=== PATIENT | female | born 1960 | race Caucasian/White ===

== ENCOUNTER 2018-01-27 13:55 | Outpatient (CLI) | payer MEDICARE, SELFPAY ==
[2018-01-27 14:39] LABS: HCT 34.8 % (36.0-46.0); Mean Corp. HGB Concentration 34.5 g/dL (32.0-36.0); Mean Corpuscular Hemoglobin 32.3 pg (27.0-33.0); Mean Corpuscular Volume 93.5 fL (80-95); Mean Platelet Volume 9.4 fL (8.0-11.0); Platelet Count 284 x1000/uL (130-400); RBC 3.72 m/cumm (4.00-5.20); RBC Distribution Width 12.9 % (11.7-14.6); White Blood Cell Count 4.33 k/cumm (4.4-10.8)
[2018-01-27 15:16] LABS: ALT 36 U/L (12-78)
== END 2018-01-27 14:15 ==
PROVIDERS: PCP Nurse Practitioner Family; Visit Provider Psychiatry & Neurology Clinical Neurophysiology
DX: G40.409 Other generalized epilepsy and epileptic syndromes, not intractable, without status epilepticus (principal)
CPT/HCPCS: 36415; 85027; 84460

== ENCOUNTER → 2018-11-26 10:30 | Outpatient (CLI) | payer MEDICARE, SELFPAY ==
--- NOTE | 2018-11-26 10:39 | DI.RAD_ITS ---
EXAM: XR FOOT LT COMPLETE INDICATION: hammer toe lt M20.42. COMPARISON: No exams were available for comparison TECHNIQUE: 2D digital imaging was performed. FINDINGS: There are hammertoe deformities of the 3rd, 4th and 5th toes. Associated degenerative bony changes a re evident. There is no evidence of a fracture or dislocation.
== END ==
PROVIDERS: PCP Nurse Practitioner Family; Visit Provider Podiatrist Foot & Ankle Surgery
DX: M20.42 Other hammer toe(s) (acquired), left foot (principal); M19.072 Primary osteoarthritis, left ankle and foot
CPT/HCPCS: 73630

== ENCOUNTER 2019-02-07 10:24 | Outpatient (CLI) | payer MEDICARE, SELFPAY ==
[2019-02-07 12:24] LABS: Absolute Basophil Count 0.06 k/cumm (0.0-0.2); Absolute Eosinophil Count 0.21 k/cumm (0.0-0.7); Absolute Lymphocyte Count 0.96 k/cumm (1.2-3.4); Absolute Monocyte Count 0.65 k/cumm (0.11-0.7); Absolute Neutrophil Count 2.96 k/cumm (1.2-6.7); Basophils % 1.2; Eosinophils % 4.3; HGB 12.6 g/dL (12.0-15.5); Lymphocytes % 19.8; Mean Corp. HGB Concentration 34.1 g/dL (32.0-36.0); Mean Corpuscular Hemoglobin 31.4 pg (27.0-33.0); Mean Corpuscular Volume 92.3 fL (80-95); Mean Platelet Volume 9.2 fL (8.0-11.0); Monocytes % 13.4; Neutrophils % 61.3; Platelet Count 306 x1000/uL (130-400); RBC 4.01 m/cumm (4.00-5.20); RBC Distribution Width 12.5 % (11.7-14.6); White Blood Cell Count 4.84 k/cumm (4.4-10.8)
== END 2019-02-07 10:44 ==
PROVIDERS: PCP Nurse Practitioner Family; Visit Provider Psychiatry & Neurology Clinical Neurophysiology
DX: G40.409 Other generalized epilepsy and epileptic syndromes, not intractable, without status epilepticus (principal); Z79.899 Other long term (current) drug therapy
CPT/HCPCS: 36415; 85025

== ENCOUNTER → 2019-11-16 12:22 | Outpatient (BNVA) | payer MEDICARE, SELFPAY | PROVIDERS: PCP Nurse Practitioner Family; Referring Provider Nurse Practitioner Family; Visit Provider Psychiatry & Neurology Neurology | DX: I67.1 Cerebral aneurysm, nonruptured (principal); G43.009 Migraine without aura, not intractable, without status migrainosus; G47.00 Insomnia, unspecified; J44.9 Chronic obstructive pulmonary disease, unspecified | CPT/HCPCS: 99205 ==

== ENCOUNTER → 2020-01-18 08:32 | Outpatient (BNVA) | payer MEDICARE, SELFPAY | PROVIDERS: PCP Nurse Practitioner Family; Referring Provider Nurse Practitioner Family; Visit Provider Psychiatry & Neurology Neurology | DX: I67.1 Cerebral aneurysm, nonruptured (principal); G43.009 Migraine without aura, not intractable, without status migrainosus; G47.00 Insomnia, unspecified | CPT/HCPCS: 99213; 99441 ==

== ENCOUNTER 2020-05-16 18:16 | Emergency (ER) | payer OTHER, SELFPAY ==
--- NOTE | 2020-05-16 18:15 | DI.RAD_ITS ---
EXAM: XR ELBOW LT LIMITED CLINICAL HISTORY: pain s/p fall. TECHNIQUE: 2D digital imaging was performed. COMPARISON: No exams were available for comparison FINDINGS: Limited two view study of the left elbow reveals no evidence of obvious fracture or joint effusion. There is no swelling of the olecranon bursa. Radial head appears unremarkable on these two views. IMPRESSION: DATA REPOSITORY: RADIATION DOSE DELIVERED:
--- NOTE | 2020-05-16 18:15 | DI.RAD_ITS ---
EXAM: XR SHOULDER LT COMPLETE 2+V CLINICAL HISTORY: pain s/p fall. TECHNIQUE: 2D digital imaging was performed. COMPARISON: No exams were available for comparison FINDINGS: There is a displaced and angulated fracture the humeral neck and there is inferior subluxation of the humeral head relative to the glenoid fossa. There is no obvious fracture of the glenoid fossa. AC joint appears unremarkable as does the clavicle. IMPRESSION: DATA REPOSITORY: RADIATION DOSE DELIVERED:
--- NOTE | 2020-05-16 18:15 | DI.RAD_ITS ---
EXAM: XR HUMERUS LT CLINICAL HISTORY: pain s/p fall. TECHNIQUE: 2D digital imaging was performed. COMPARISON: No exams were available for comparison FINDINGS: There is a displaced fracture of the surgical neck of the left humerus. There is also subluxation of humeral head inferiorly relative to the glenoid fossa. There are no fractures more distally in the humerus. IMPRESSION: There is a displaced fracture of the left humeral surgical neck with significant subluxation of the h umeral head. DATA REPOSITORY: RADIATION DOSE DELIVERED:
--- NOTE | 2020-05-16 18:15 | DI.RAD_ITS ---
EXAM: XR FOREARM LT CLINICAL HISTORY: pain s/p fall. TECHNIQUE: 2D digital imaging was performed. COMPARISON: CR,XR XR HUMERUS LT from 05/16/2020 FINDINGS: No evidence of fracture or dislocation of the forearm bones. No radiopaque foreign body. No osseous lesions. IMPRESSION: DATA REPOSITORY: RADIATION DOSE DELIVERED:
[2020-05-16 18:24] VITALS: BP 129/85; PULSE 67; RESP 16; TEMP 36.4; O2SAT 93
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
[2020-05-16] MEDS: Ibuprofen 600 MG TAB PO (18:44)
--- NOTE | 2020-05-16 19:37 | DI.VRAD_ITS ---
PROCEDURE INFORMATION: Exam: XR Left Humerus Exam date and time: 05/16/2020 6:31 PM Age: 60 years old Clinical indication: Other: Pain, S/P fall TECHNIQUE: Imaging protocol: XR Left humerus. Views: 2 or more views. COMPARISON: No relevant prior studies available. FINDINGS: Bones/joints: Displaced surgical neck fracture of the proximal left humerus. Inferior subluxation of the humeral head fragment, relative to the glenoid. Diffuse osteopenia. Soft tissues: Normal. IMPRESSION: Displaced left humeral surgical neck fracture with subluxation of the humeral head. Dictated and Authenticated by: Amadou Pruitt MD. Ordering:KYLEE Haro MD
--- NOTE | 2020-05-16 19:41 | DI.VRAD_ITS ---
PROCEDURE INFORMATION: Exam: XR Left Shoulder Exam date and time: 05/16/2020 6:31 PM Age: 60 years old Clinical indication: Other: Pain, S/P fall TECHNIQUE: Imaging protocol: XR Left shoulder. Views: 2 or more views. COMPARISON: No relevant prior studies available. FINDINGS: Bones/joints: Left humeral neck fracture with shortening and 15 mm lateral displacement. The humeral head fragment is inferiorly subluxed and rotated counterclockwise. Soft tissues: Normal. IMPRESSION: Angulated, displaced humeral neck fracture with inferior subluxation of the humeral head. Dictated and Authenticated by: Amadou Pruitt MD. Ordering:KYLEE Haro MD
--- NOTE | 2020-05-16 19:43 | DI.VRAD_ITS ---
PROCEDURE INFORMATION: Exam: XR Left Forearm Exam date and time: 05/16/2020 6:31 PM Age: 60 years old Clinical indication: Other: Pain, S/P fall TECHNIQUE: Imaging protocol: XR Left forearm. Views: 2 views. COMPARISON: CR XR ELBOW LT COMPLETE 05/16/2020 7:13 PM FINDINGS: Bones/joints: No fracture or dislocation. Soft tissues: Normal. IMPRESSION: No acute abnormality. Dictated and Authenticated by: Amadou Pruitt MD. Ordering:KYLEE Haro MD
--- NOTE | 2020-05-16 19:43 | DI.VRAD_ITS ---
PROCEDURE INFORMATION: Exam: XR Left Elbow Exam date and time: 05/16/2020 6:31 PM Age: 60 years old Clinical indication: Other: Pain, S/P fall TECHNIQUE: Imaging protocol: XR Left elbow. Views: 1 or 2 views. COMPARISON: CR XR HUMERUS LT 05/16/2020 7:04 PM FINDINGS: Bones/joints: Normal elbow joint spacing and alignment. No joint effusion. No fracture or dislocation. Soft tissues: Normal. IMPRESSION: No acute fracture the left elbow. Dictated and Authenticated by: Amadou Pruitt MD. Ordering:KYLEE Haro MD
--- NOTE | 2020-05-16 19:55 | SUR.PHASEI ---
Getting patient ready for discharge, IV D/C'd, Patient Called a friend for a ride, will be about a 1/2 hour coming from [place]. Patient states she had a camouflage coat and her wallet was in the pocket. Not in room with patient, call placed to [place] [facility] and they said they did not bring it, left it at the place they picked patient up. Patient informed.
--- NOTE | 2020-05-16 20:05 | NUR.NOTE ---
Nursing Note:Patient want to wear hospital gown home and wants sweat shirt over it. Only able to put right arm in sweat shirt and would only partially cover left shoulder. Went to lobby with patient to see if ride was here, suggested she sit over by the window so she could see when they arrive. Patient asked if she could sit in the other section so she did not have to sit on the radiator. I let her know there were chairs next to the radiator by the window.
--- NOTE | 2020-05-16 20:30 | NUR.NOTE ---
Nursing Note:Patient still sitting in the lobby. I asked her if I could call her ride again for her and she told me she just called her again and she was leaving now to pick her up.
== END 2020-05-16 20:19 | disposition home or self-care (01) ==
PROVIDERS: Emergency Provider Emergency Medicine; PCP Nurse Practitioner Family
DX: S43.032A Inferior subluxation of left humerus, initial encounter (principal); S42.212A Unspecified displaced fracture of surgical neck of left humerus, initial encounter for closed fracture; M25.522 Pain in left elbow; M79.632 Pain in left forearm; W07.XXXA Fall from chair, initial encounter; W54.1XXA Struck by dog, initial encounter
CPT/HCPCS: 23600; 99283; 73030; 73060; 73070; 73090; 99281

== ENCOUNTER 2020-05-22 08:28 | Outpatient (CLI) | payer OTHER, SELFPAY ==
--- NOTE | 2020-05-22 08:15 | DI.RAD_ITS ---
EXAM: XR SHOULDER LT COMPLETE 2+V CLINICAL HISTORY: f/u TECHNIQUE: COMPARISON: CR,XR XR SHOULDER LT COMPLETE 2+V from 05/16/2020 FINDINGS: Three views were obtained. Previously described fracture of the proximal humerus again noted, inferi or subluxation of the humeral head from the glenoid also again noted, no gross interval change in rachel earance comparison with prior radiographs of May 16. IMPRESSION: RADIATION DOSE DELIVERED: Total DLP
== END 2020-05-22 08:29 | disposition home or self-care (01) ==
LOC: DIORS 08:28
PROVIDERS: PCP Nurse Practitioner Family; Referring Provider Student in an Organized Health Care Education/Training Program; Visit Provider Student in an Organized Health Care Education/Training Program
DX: S42.212D Unspecified displaced fracture of surgical neck of left humerus, subsequent encounter for fracture with routine healing (principal); S43.03 Inferior subluxation and dislocation of humerus; S42.392A Other fracture of shaft of left humerus, initial encounter for closed fracture; S14.3XXA Injury of brachial plexus, initial encounter; W07.XXXA Fall from chair, initial encounter; W54.1XXA Struck by dog, initial encounter
CPT/HCPCS: 99204; 99214; 73030

== ENCOUNTER 2020-06-06 14:01 | Outpatient (CLI) | payer OTHER, SELFPAY ==
--- NOTE | 2020-06-06 13:45 | DI.RAD_ITS ---
EXAM: XR SHOULDER LT COMPLETE 2+V CLINICAL HISTORY: left shoulder pain. TECHNIQUE: 2D digital imaging was performed. COMPARISON: CR XR SHOULDER LT COMPLETE 2+V from 05/22/2020 FINDINGS: Again noted is the transverse fracture of the surgical neck of the proximal left humerus as well as s ignificant downward subluxation of the humeral head relative to the glenoid fossa. There there is fu rther displacement at the fracture site is seen on the Grashey view. There is now a distance of 8 mi llimeters between the outer cortex of the greater tuberosity and the subjacent cortex of the uppermos t tumorous, previously flush with each other. IMPRESSION: Further displacement at the fracture site. Persistent inferior subluxation at the glenohumeral joint also noted. DATA REPOSITORY: RADIATION DOSE DELIVERED:
== END 2020-06-06 14:02 | disposition home or self-care (01) ==
LOC: DIORS 14:01
PROVIDERS: PCP Nurse Practitioner Family; Referring Provider Nurse Practitioner Family; Visit Provider Student in an Organized Health Care Education/Training Program
DX: S42.392D Other fracture of shaft of left humerus, subsequent encounter for fracture with routine healing (principal); S14.3XXD Injury of brachial plexus, subsequent encounter; X58.XXXD Exposure to other specified factors, subsequent encounter; M25.512 Pain in left shoulder; S43.03 Inferior subluxation and dislocation of humerus
CPT/HCPCS: 99213; 73030

== ENCOUNTER → 2020-11-08 00:47 | Outpatient (CLI) | payer OTHER, SELFPAY ==
--- NOTE | 2020-11-08 | DI.MAMMO_ITS ---
Exam(s) MAMMO SCREENING EXAM: MAMMO SCREENING CLINICAL HISTORY: SCREENING, FIBROCYSTIC DISEASE,N60.19,Z12.31. TECHNIQUE: Bilateral full field digital CC and MLO mammographic images were obtained with 3D tomosyn thesis and utilizing computer aided detection (CAD). COMPARISON: Prior mammograms dating back to 2011, the most recent being November 2015. FINDINGS: There are no CAD designations. There are no new spiculated masses nor malignant appearing microcalcification groups. There is no significant architectural distortion nor skin thickening-retraction. IMPRESSION: No radiographic evidence of malignancy. BI-RADS Category 1 - Negative Breast Density - Category B - Scattered areas of fibroglandular density Breast density Category C or D implies that the patient has dense breast tissue. Dense breast tissue can make it harder to find cancer on a mammogram. Dense breast tissue is also associated with an incr eased risk of breast cancer. This information about the result of the mammogram report was provided to the patient to raise their awareness. Use this report when you speak with the patient about their risks for breast cancer, which includes their family history. At that time, you may recommend additional screening tests (Ultrasoun d or MRI) as these tests may add significant information. A negative radiographic report should not delay biopsy if a dominant or clinically suspicious mass is present. Up to ten percent of cancers are not identified on mammography. A negative report may reinforce clinical impression. Adenosis and dense breasts may obscure an underlying neoplasm. False positive reports average 6 to 10%. Patient will receive a letter notifying them of these results.
--- NOTE | 2020-11-08 | DI.CT_ITS ---
Exam(s) CT NECK W EXAM: CT NECK W CLINICAL HISTORY: NECK MASS, R22.1. TECHNIQUE: Imaging Protocol: Axial CT angiography was performed with multi-slice acquisition and mu lti-planar and/or 3D reconstructions. CONTRAST MATERIAL: Intravenous: Omnipaque 350 Contrast volume:100 mL COMPARISON: No exams were available for comparison FINDINGS: Uppermost images reveal evidence of previous bilateral craniotomies and multiple intracranial clips. Large area of encephalomalacia noted in the territory of the right middle cerebral artery. SALIVARY GLANDS: Both submandibular glands appear unremarkable. left parotid gland appears unremarka ble. however, there is a mass intimately related to the posterior aspect of the right parotid gland and anterior aspect of the ipsilateral sternocleidomastoid muscle, this measuring 2 by 1.3 by 2.5 cm. This appears to be in the inferior aspect of the right parotid gland or contiguous with the bottom part of the gland. This mass is centrally hypodense. There is no other mass or lymphadenopathy in the right-side of the neck nor in the supraclavicular re gion. nasopharynx: Unremarkable. Oropharynx: Unremarkable. Hypopharynx: Asymmetry noted in the right vallecula, possibly significant. This extends from the pos terior wall to the epiglottis. The left vallecular appears unremarkable. Aryepiglottic folds appear unremarkable. No obvious findings at the level of the adducted vocal cord s. Subglottic airway appears unremarkable. No obvious pancreatic findings of concern. Thyroid gland: Normal size. No obvious nodules. Vascular: Calcified plaque at the carotid bifurcations. Moderate stenosis in the proximal left ICA. Internal jugular veins are patent. Osseous: Multilevel degenerative disc disease. No osseous lesions in the cervical vertebrae. IMPRESSION: 1. There is a 20 x 13 x 25 millimeter abnormal mass either in or contiguous with the inferior aspect of the right parotid gland, just anterior to the ipsilateral sternocleidomastoid muscle and just late ral to the right internal jugular vein. This is either a mass in the parotid gland or abnormal lymph node (no other lymphadenopathy evident in the neck and supraclavicular region). Biopsy recommended 2. Asymmetric density noted in the right vallecula, possibly significant. This should be directly vi sualized with ENT endoscopy. This may or may not be related to the finding described above. 3. Incidentally noted is evidence of bilateral craniotomies and clips noted within the intracranial c ompartment. Also encephalomalacia in the territory of the right middle cerebral artery. RADIATION DOSE DELIVERED: 314.2mGy.cm Total DLP DATA REPOSITORY: All CT scans at this facility are submitted to the National Radiology Data Registry (NRDR) Dose Index Registry (DIR) with the [employer] ([employer]). RADIATION OPTIMIZATION: All CT scans at this facility use at least one of these dose optimization te chniques: automated exposure control; mA and/or kV adjustment per patient size (includes targeted exa ms where dose is matched to clinical indication); or iterative reconstruction.
--- NOTE | 2020-11-08 | DI.US_ITS ---
Exam(s) US SOFT TISSUE EXTREMITY EXAM: US SOFT TISSUE EXTREMITY CLINICAL HISTORY: RT INGUINAL ADENOPATHY. TECHNIQUE: Ultrasound was performed using standard protocol. COMPARISON: US PELVIS TRANSVAG from 01/17/2010 FINDINGS: Sonographic assessment utilizing grayscale and color Doppler imaging was performed and targeted to th e area of clinical concern. Both groins were scanned. Minimally prominent but benign-appearing lymph nodes noted in both groins. These appear relatively s ymmetrical. Largest on the left side measures 1.9 x 0.6 cm. Largest on the right side exhibits tima lar size. IMPRESSION: Minimally prominent benign-appearing lymph nodes noted in both groins. Recommend repeat ultrasound i n 3 months time, given the history here. DATA REPOSITORY:
[2020-11-08] MEDS: Omnipaque 350 MG/ML 50 ML BTL IJ ×2 (15:53→15:54)
== END ==
PROVIDERS: PCP Nurse Practitioner Family; Visit Provider Nurse Practitioner Family
DX: R59.9 Enlarged lymph nodes, unspecified (principal); N60.19 Diffuse cystic mastopathy of unspecified breast; Z12.31 Encounter for screening mammogram for malignant neoplasm of breast; R93.89 Abnormal findings on diagnostic imaging of other specified body structures; R22.1 Localized swelling, mass and lump, neck
CPT/HCPCS: 70491; 76881; 77063; 77067; Q9967

== ENCOUNTER → 2021-04-24 01:19 | Outpatient (CLI) | payer OTHER, SELFPAY | PROVIDERS: PCP Nurse Practitioner Family; Visit Provider Nurse Practitioner Family ==

== ENCOUNTER 2021-05-08 11:19 | Emergency (ER) | payer OTHER, SELFPAY ==
--- NOTE | 2021-05-08 | DI.RAD_ITS ---
Exam(s) XR SHOULDER LT COMPLETE 2+V EXAM: XR SHOULDER LT COMPLETE 2+V CLINICAL HISTORY: Fx. TECHNIQUE: 2D digital imaging was performed. COMPARISON: CR XR SHOULDER LT COMPLETE 2+V from 06/06/[address] UPPER EXTREMITY LT WO from 06/13/2020 CR XR HUMERUS RT from 05/08/2021 CR XR SHOULDER RT COMPLETE 2+V from 05/08/2021 FINDINGS: Two views, compared to 06 06 20. There has been interval placement of a lateral fixation plate across the left humeral head-neck fract ure and there has been satisfactory healing with no evidence of hardware loosening nor radiographic e vidence of osteomyelitis. In addition, the glenohumeral joint is no longer dislocated. The humeral head is situated within the glenoid fossa this time. There are mild degenerative changes in the latrell ohumeral joint. Subacromial space is not diminished. IMPRESSION: Healed fracture with hardware left humeral head-neck, as described above. DATA REPOSITORY: RADIATION DOSE DELIVERED:
--- NOTE | 2021-05-08 | DI.RAD_ITS ---
Exam(s) XR SHOULDER RT COMPLETE 2+V EXAM: XR SHOULDER RT COMPLETE 2+V CLINICAL HISTORY: Fx. TECHNIQUE: 2D digital imaging was performed. COMPARISON: CR XR SHOULDER LT COMPLETE 2+V from 06/06/2020 CR XR HUMERUS RT from 05/08/2021 FINDINGS: Two views There is a mild-moderately displaced fracture of the humeral head at the level of the greater tuberos ity. Fracture line also extending obliquely into the proximal diaphysis. There is also a transverse component at the surgical neck of the humerus. There is no dislocation of glenohumeral joint. Subacromial space is not diminished. There is no dominique dence of osseous glenoid fossa fracture. IMPRESSION: Humeral head fractures described above. DATA REPOSITORY: RADIATION DOSE DELIVERED:
[2021-05-08 11:22] VITALS: BP 144/84; PULSE 74; RESP 20; TEMP 37; O2SAT 98
--- NOTE | 2021-05-08 11:57 | ED.GENADUL_ITS ---
Discharge Plan Disposition Patient Disposition: HOME Condition: Stable Discharge Details Clinical Impression: Closed right humeral fracture, Skin tear of left upper extremity Primary Care Provider: Keesha Whyte ED Provider: Ted Garcia Home Meds and New Rx's Prescriptions: Continued carbamazepine [Epitol] 200 mg tablet 400 mg PO HS Qty: 180 3RF clonazepam 0.5 mg tablet 0.5 mg PO QHS Qty: 30 3RF Label Comments: 05/08/21-er--ran out of 2 months ago Rx Instructions: administer 30 minutes before bedtime sumatriptan succinate 100 mg tablet 100 mg PO DAILY PRN (Reason: migraine headache) Qty: 9 5RF Rx Instructions: No more than 2 tabs in a single 24 hour period. gabapentin 600 mg tablet See Rx Instructions PO DAILY Qty: 360 3RF Rx Instructions: 1 am, 1 noon, 2 hs PO daily; naproxen 375 mg tablet 375 mg PO BID PRN (Reason: pain) Qty: 120 0RF timolol 0.5 % drops 1 drp ophthalmic (eye) BID 0RF Thera-Tabs Tablet 1 tab PO DAILY 0RF albuterol sulfate [Ventolin HFA] 90 mcg/actuation HFA aerosol inhaler 2 puff IH Q6H PRN0RF Discharge Instructions Instructions: Arm Fracture in Adults (ED), Skin Tear (ED), Fall Prevention (ED) Additional Instructions: Use sling. Follow-up with orthopedics. Please take acetaminophen (tylenol) - 650mg every 6 hours by mouth as needed for pain. Please follow-up with orthopedics. Call for an appointment. Return to the emergency department for any worsening or new concerning symptoms peer Referrals: [facility] [Provider Group] Discharge Data Discharge Date/Time-TO BE ENTERED AT DEPARTURE: 05/08/21 14:23 Medical Decision Making 1200 -- 61-year-old female here after mechanical trip and fall 2 days ago with pain right upper arm, tender right proximal humerus and shoulder. Patient neurovascular intact. Concern for proximal humerus fracture. Plan to obtain x- ray. 1320 --x-ray was reviewed and interpreted by me: Closed fracture of the proximal humerus. 1400 -- I spoke with Dr. Cast he recommends bilateral shoulder x-rays. X-rays were reviewed with Dr. Cast and recommended outpatient follow-up. Patient was referred to see her prior orthopedic surgeon. Usual customary discharge instructions reviewed with patient. HPI General Mode of arrival: EMS . Date/Time Provider Initiated Documentation: 05/08/21 11:36 . Limitations to Documentation: no limitations . Information obtained by: patient and EMS . 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 Patient notes she impacted her right shoulder. She also sustained abrasions to her left arm. She did not hit her head or lose consciousness. No neck or back injury. No pain in her hip. Patient has been using swelling and any movement of the arm worsens pain Related Data Home Medications Medication Instructions Recorded Confirmed albuterol sulfate 90 mcg/actuation 2 puff IH Q6H PRN 09/21/19 05/08/21 aerosol inhaler (Ventolin HFA) therapeutic multivitamin 1 tab PO DAILY 09/21/19 05/08/21 (Thera-Tabs) carbamazepine 200 mg tablet 400 mg PO HS #180 tab 01/18/20 05/08/21 (Epitol) clonazepam 0.5 mg tablet 0.5 mg PO QHS #30 tab 01/18/20 05/08/21 gabapentin 600 mg tablet See Rx Instructions PO DAILY #360 01/18/20 05/08/21 tab naproxen 375 mg tablet 375 mg PO BID PRN #120 tab 01/18/20 05/08/21 sumatriptan succinate 100 mg tablet 100 mg PO DAILY PRN #9 tab 01/18/20 05/08/21 timolol 0.5 % eye drops 1 drp OPHTHALMIC (EYE) BID 05/22/20 05/08/21 Previous Rx's Medication Instructions Recorded carbamazepine 200 mg tablet 400 mg PO HS #180 tab 01/18/20 (Epitol) clonazepam 0.5 mg tablet 0.5 mg PO QHS #30 tab 01/18/20 gabapentin 600 mg tablet See Rx Instructions PO DAILY #360 01/18/20 tab naproxen 375 mg tablet 375 mg PO BID PRN #120 tab 01/18/20 sumatriptan succinate 100 mg tablet 100 mg PO DAILY PRN #9 tab 01/18/20 Allergies Allergy/AdvReac Type Severity Reaction Status Date / Time ketorolac [From Toradol] Allergy Verified 05/08/21 11:30 General Stated Complaint: Orthopedic HENRY: 3 Review of Systems All systems reviewed & are unremarkable except as noted in HPI and below Constitutional Constitutional: Denies fever(s) Musculoskeletal Musculoskeletal: Reports as per HPI Integumentary/Breasts Skin/Breast: Reports as per HPI PFSH All Active Problems (Updated 05/08/21 @ 14:10 by Ted Garcia MD) Closed right humeral fracture (Acute) Skin tear of left upper extremity (Acute) Brachial plexus injury, left (Acute) Encephalomalacia (Acute) Closed fracture of left proximal humerus (Acute 05/16/20) Cerebral aneurysm (Acute) 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) (Acute) Migraine headache without aura (Acute) Insomnia (Acute) Medical History Abnormal auditory perception Anemia Anxiety with depression Bilateral artificial lens implant Bunion Chronic lower back pain COPD (chronic obstructive pulmonary disease) Fibrocystic disease of both breasts Hammer toe of left foot Hemiparesis, left Myocardial infarction Onychomycosis Post operative CHF Primary open angle glaucoma Tobacco use Surgical History ANEURYSM CLIPPING Craniotomy Ligation of fallopian tube Family History Father Lung cancer Frequent headaches Mother Brain bleed Sister Brain bleed Social History Smoking/Tobacco Use Status: Current-Occasional Tobacco Type: cigarettes Smoking risk assessment performed?: Yes Alcohol Intake: current Alcohol Intake frequency: 3 or more drinks per day Alcohol type: beer Drug use: Never Household members: friend(s) Housing: house Number of Children: 0 current occupation: Disabled. 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 Pets and animals: Yes Pets and animals: cat(s), dog(s), bird(s), fish and snake(s) Current gender identity: female What is your relationship status?: Panel score (0-1 are the most socially isolated patients): 0 What type of physical activity do you participate in: none Seatbelt use: always Do you feel safe at home: Yes Do you feel safe in your relationship?: Yes Exam Const General: cooperative and no acute distress HENMT Head: normocephalic and atraumatic Mouth: moist mucous membranes Eyes EOM: EOM intact bilaterally Neck Neck: trachea midline and supple Resp Auscultation: clear to auscultation bilaterally, no rales, no rhonchi and no wheezes Cardio Rate: regular rate and not tachycardic Rhythm: regular rhythm GI Palpation: soft, not firm, no guarding, no masses, not rigid and nontender Back/Spine/Pelvis Cervical Spine: cervical ROM normal, No cervical spinal tenderness and No step off deformity Thoracic/Lumbar Spine: thoracic and lumbar spine normal to inspection, No thoracic spinal tenderness and No lumbar spinal tenderness Skin Trauma: other (Skin tears left upper arm with no bleeding) Neuro General: patient alert, patient awake, patient oriented x3 and tone normal Extrem General: no edema Right upper extremity: shoulder/upper arm Details: tenderness Location: of the proximal humerus, axillary nerve sensory function normal and abnormal ROM Details: pain with active ROM Details: in ABduction Psych Appearance: grossly normal Mental Status: mental status grossly normal Speech and Movement: speech and movement normal Course Vital Signs Vital signs: Vital Signs Temperature 37 C 05/08/21 11:22 Pulse 74 05/08/21 11:22 Respiratory Rate 20 05/08/21 11:22 Blood Pressure 144/84 H 05/08/21 11:22 Pulse Oximetry 98 05/08/21 11:22 Temperature 37 C 05/08/21 11:22 Temperature Source Temporal Artery Scan 05/08/21 11:22 Pulse 74 05/08/21 11:22 Respiratory Rate 20 05/08/21 11:22 Respiratory Effort Non-Labored 05/08/21 11:27 Blood Pressure 144/84 H 05/08/21 11:22 Blood Pressure Position Supine 05/08/21 11:22 Pulse Oximetry 98 05/08/21 11:22 Oxygen Delivery Method Room Air 05/08/21 11:22 Oxygen Flow Rate 0 05/08/21 11:22 Pain Level 4 05/08/21 11:22 PAWSS Have you Been Recently Intoxicated or Drunk Within the Last 30 days?: Yes Have you Ever Experienced Previous Episodes of Alcohol Withdrawal?: No Have you ever Experienced Withdrawal Seizures?: No Have you ever Experienced Delirium Tremens(DT)s?: No Have you ever undergone Alcohol Rehabilitation Treatment (i.e, inpt ot outpatient treatment programs)?: No Have you ever Experienced Blackouts?: No Have you ever Combined Alcohol with other Downers within the last 90 days?: No Have you ever Combined Alcohol with any other Substance of Abuse during the last 90 days?: No Positive Blood Alcohol level on Presentation? [PCS.BAL]: No Evidence of Increased Autonomic Activity (i.e. HR>120, tremor, sweating, agitation, nausea)?: No Result: 1
[2021-05-08] MEDS: Bacitracin 1 PACKET TP (12:30)
--- NOTE | 2021-05-08 13:08 | DI.RAD_ITS ---
Exam(s) XR HUMERUS RT EXAM: XR HUMERUS RT CLINICAL HISTORY: fall, pain. TECHNIQUE: 2D digital imaging was performed. COMPARISON: CR,XR XR FOREARM LT from 05/16/2020 FINDINGS: There is a fracture of the humeral head and neck. Fractures mostly located laterally and involves th e greater tuberosity. There is mild displacement. Fracture line does extend mildly into the proxima l diaphysis. Distal humerus appears intact and epicondyles appear unremarkable. There is no disloca tion of the glenohumeral joint nor diminution of the subacromial space. The AC joint appears unremar kable as does the visualized lateral half of the clavicle. IMPRESSION: Humeral head-neck fracture. This involves greater tuberosity which exhibits some comminution and mil d displacement. DATA REPOSITORY: RADIATION DOSE DELIVERED:
--- NOTE | 2021-05-08 16:40 | CMPROGNOTE_ITS ---
- If Service Date Differs Date of service: 05/08/21 Time of Service: 16:40 Care Management Progress Note S/O: Jeannette comes to the ED after a mechanical trip and fall at home resulting in a closed right humeral fracture. At the request of nursing staff, JAH meets with Jeannette to assess needs. Jeannette states she lives alone and is independent with her ADLs at baseline. She states she is right handed and the fracture of her right arm will make it difficult for her to care for herself. She is ag reeable to coordinating referrals to Home Health and to [facility]. Jeannette normally drives herself to appointments but states she has taken RCT in the past and she knows how to contact them. A: Jeannette presents in the ED for a closed right humeral fracture. P: JAH coordinates referrals to Home Health for RN, OT, and SPECIALTY PERSON services, and to [facility] for MOW and case management.
== END 2021-05-08 14:23 | disposition home or self-care (01) ==
LOC: ER 13:57
PROVIDERS: Emergency Provider Student in an Organized Health Care Education/Training Program; PCP Nurse Practitioner Family
DX: S42.291A Other displaced fracture of upper end of right humerus, initial encounter for closed fracture (principal); S40.812A Abrasion of left upper arm, initial encounter; W01.0XXA Fall on same level from slipping, tripping and stumbling without subsequent striking against object, initial encounter
CPT/HCPCS: 99284; 73030; 73060; 99283

== ENCOUNTER 2021-05-15 15:53 | Outpatient (REF) | payer OTHER, SELFPAY ==
[2021-05-15 20:58] LABS: Abs Immature Grans 0.03 10^3/uL (0.0-0.06); Absolute Basophil Count 0.05 10^3/uL (0.0-0.2); Absolute Eosinophil Count 0.09 10^3/uL (0.0-0.7); Absolute Lymphocyte Count 0.67 10^3/uL (1.2-3.4); Absolute Monocyte Count 0.62 10^3/uL (0.1-0.8); Absolute Neutrophil Count 3.89 10^3/uL (1.2-6.7); Basophils % 0.9; Eosinophils % 1.7; HCT 34.2 % (36.0-46.0); HGB 11.7 g/dL (11.2-15.7); Immature Grans % 0.6; Lymphocytes % 12.5; MCH 31.9 pg (27.0-33.0); MCHC 34.2 % (32.0-36.0); MCV 93.2 fL (80-95); MPV 8.9 fL (8.0-11.0); Monocytes % 11.6; Neutrophils % 72.7; Nucleated RBC 0 %; Platelet Count 427 10^3/uL (130-400); RBC 3.67 10^6/uL (3.93-5.22); RDW 13.4 % (11.7-14.6); RDW-SD 46.1 fL; WBC 5.35 10^3/uL (4.4-10.8)
[2021-05-15 22:00] LABS: ALT 38 U/L (14-59); AST 32 U/L (15-37); Albumin 3.6 g/dL (3.4-5.0); Alkaline Phosphatase 103 U/L (46-116); Anion Gap 10.5 mmol/L (3-11); BUN 7 mg/dL (7-18); Bilirubin, Total 0.3 mg/dL (0.2-1.0); CO2 23.5 mmol/L (21.0-32.0); CREATININE 0.5 mg/dL (0.55-1.02); Chloride 98 mmol/L (98-107); Glucose 95 mg/dL (74-106); Potassium 4.3 mmol/L (3.5-5.1); Sodium 132 mmol/L (136-145); Total Protein 6.9 g/dL (6.4-8.2)
== END 2021-05-15 15:54 | disposition home or self-care (01) ==
LOC: NCHCN 15:53
PROVIDERS: PCP Nurse Practitioner Family; Visit Provider Nurse Practitioner Family
DX: R63.4 Abnormal weight loss (principal)
CPT/HCPCS: 80053; 85025

== ENCOUNTER 2021-05-17 10:14 | Outpatient (REF) | payer OTHER, SELFPAY | END 2021-05-17 10:15 | disposition home or self-care (01) | LOC: NCHCN 10:14 | PROVIDERS: PCP Nurse Practitioner Family; Visit Provider Nurse Practitioner Family ==

== ENCOUNTER 2021-06-11 16:35 | Outpatient (REF) | payer OTHER, SELFPAY ==
[2021-06-11 18:56] LABS: Anion Gap 10.5 mmol/L (3-11); CO2 23.5 mmol/L (21.0-32.0); Chloride 98 mmol/L (98-107); Magnesium 2.2 mg/dL (1.8-2.4); Potassium 4.5 mmol/L (3.5-5.1); Sodium 132 mmol/L (136-145); Triglyceride 92 mg/dL (<150)
[2021-06-11 19:16] LABS: PHOSPHORUS 4.5 mg/dL (2.6-4.7)
== END 2021-06-11 16:36 | disposition home or self-care (01) ==
LOC: LBN 16:35
PROVIDERS: PCP Nurse Practitioner Family; Visit Provider Nurse Practitioner Family
DX: E83.51 Hypocalcemia (principal); E87.1 Hypo-osmolality and hyponatremia
CPT/HCPCS: 80051; 83735; 84100; 84478

== ENCOUNTER 2021-09-18 11:44 | Outpatient (REF) | payer OTHER, SELFPAY ==
[2021-09-18 21:11] LABS: Abs Immature Grans 0.03 10^3/uL (0.0-0.06); Absolute Basophil Count 0.02 10^3/uL (0.0-0.2); Absolute Eosinophil Count 0.17 10^3/uL (0.0-0.7); Absolute Lymphocyte Count 0.52 10^3/uL (1.2-3.4); Absolute Monocyte Count 0.88 10^3/uL (0.1-0.8); Basophils % 0.3; Eosinophils % 2.5; HGB 12.4 g/dL (11.2-15.7); Immature Grans % 0.4; Lymphocytes % 7.5; MCH 32.2 pg (27.0-33.0); MCHC 35.4 % (32.0-36.0); MCV 91 fL (80-95); MPV 9.2 fL (8.0-11.0); Monocytes % 12.7; Neutrophils % 76.6; Platelet Count 441 10^3/uL (130-400); RBC 3.85 10^6/uL (3.93-5.22); RDW 13.5 % (11.7-14.6); RDW-SD 45.2 fL; WBC 6.92 10^3/uL (4.4-10.8)
[2021-09-18 21:26] LABS: TROPONIN-I 2.3 ug/mL (4.0-12.0)
[2021-09-18 21:40] LABS: ALT 25 U/L (14-59); AST 27 U/L (15-37); Albumin 3.8 g/dL (3.4-5.0); Alkaline Phosphatase 164 U/L (46-116); Anion Gap 7.1 mmol/L (3-11); BUN 14 mg/dL (7-18); Bilirubin, Total 0.4 mg/dL (0.2-1.0); CO2 27.9 mmol/L (21.0-32.0); CREATININE 0.5 mg/dL (0.55-1.02); Calcium 9.1 mg/dL (8.5-10.1); Chloride 84 mmol/L (98-107); Glucose 108 mg/dL (74-106); Potassium 3.7 mmol/L (3.5-5.1); Total Protein 7.9 g/dL (6.4-8.2)
[2021-09-18 21:56] LABS: Sodium 119 mmol/L (136-145)
== END 2021-09-18 11:45 | disposition home or self-care (01) ==
LOC: NCHCN 11:44
PROVIDERS: PCP Nurse Practitioner Family; Visit Provider Nurse Practitioner Family
DX: G40.309 Generalized idiopathic epilepsy and epileptic syndromes, not intractable, without status epilepticus (principal); R42 Dizziness and giddiness; E83.51 Hypocalcemia; Z51.81 Encounter for therapeutic drug level monitoring; D64.9 Anemia, unspecified
CPT/HCPCS: 80053; 80156; 85025

== ENCOUNTER 2021-10-11 00:24 | Outpatient (CLI) | payer OTHER, SELFPAY ==
--- NOTE | 2021-10-11 11:15 | DI.CT_ITS ---
Exam(s) CT CHEST WO EXAM: CT CHEST WO CLINICAL HISTORY: H/O TOBACCO ABUSE, Z87.891; HYPONATREMIA, E87.1; RT PAROTID MASS, K11.8. TECHNIQUE: Multi planar reconstructions were performed. CONTRAST MATERIAL: None COMPARISON: CT CHEST - LUNG CANCER SCREENING from 04/20/2017 FINDINGS: CHEST: LUNGS: Mild benign-appearing increased markings in the inferior lingular segment of the left lung not ed. No other left lung findings nor pleural effusion. There are mild benign-appearing pleural base markings in the lateral aspect of the right upper lobe, slightly more prominent than previous 2018 st udy. No associated pleural effusion. No rib destruction. No pleural calcification. There are no p leural effusions on either side. No significant focal findings in the trachea and mainstem bronchi. MEDIASTINUM: There is no obvious hilar nor mediastinal adenopathy. Visualized thyroid unremarkable.No obvious axillary adenopathy CARDIAC: Heart size is normal. There is no pericardial effusion.Caliber of the thoracic aorta is wit hin normal limits. VISUALIZED UPPER ABDOMEN:Cholelithiasis. No adrenal masses. OSSEOUS: There are displaced fractures of the left 9th, 10th, 11th, and 12th ribs evident, not previo usly present in 2018. These fractures are acute or subacute. No right rib fractures identified.No c ompression fractures of vertebral bodies. No sternal fractures.. IMPRESSION: 1. There are displaced fractures of the posterior aspects of the left 9th, 10th, and 11th ribs and a nondisplaced fracture of the 12th rib. These appear subacute. Were not present on prior CT scan of 2018. No associated lung contusion or pneumothorax nor pleural effusion. 2. Mild benign-appearing pulmonary findings as described above. No pleural effusions. No pericardia l effusion. 3. Incidentally noted is cholelithiasis. RADIATION DOSE DELIVERED: 351.93mGy.cm Total DLP DATA REPOSITORY: All CT scans at this facility are submitted to the National Radiology Data Registry (NRDR) Dose Index Registry (DIR) with the [employer] (ACR). RADIATION OPTIMIZATION: All CT scans at this facility use at least one of these dose optimization te chniques: automated exposure control; mA and/or kV adjustment per patient size (includes targeted exa ms where dose is matched to clinical indication); or iterative reconstruction.
== END 2021-10-11 00:44 ==
LOC: DI 00:25
PROVIDERS: PCP Nurse Practitioner Family; Visit Provider Nurse Practitioner Family
DX: K11.8 Other diseases of salivary glands (principal); R63.4 Abnormal weight loss; E87.1 Hypo-osmolality and hyponatremia; J98.4 Other disorders of lung; K80.20 Calculus of gallbladder without cholecystitis without obstruction; S22.42XA Multiple fractures of ribs, left side, initial encounter for closed fracture; Z87.891 Personal history of nicotine dependence
CPT/HCPCS: 71250

== ENCOUNTER 2022-11-23 09:53 | Emergency (ER) | payer OTHER, SELFPAY ==
[2022-11-23 10:04] VITALS: BP 147/97; PULSE 75; RESP 22; TEMP 37.2; O2SAT 98
[2022-11-23 10:07] VITALS: O2SAT 94
[2022-11-23 10:08] VITALS: BP 147/97; PULSE 75; O2SAT 95
[2022-11-23 10:10] VITALS: O2SAT 94
--- NOTE | 2022-11-23 10:15 | DI.RAD_ITS ---
Exam(s) XR TIB/FIB LT XR FOOT LT COMPLETE XR ANKLE LT COMPLETE EXAM: XR FOOT LT COMPLETE and XR ankle LT complete and XR tib fib left CLINICAL HISTORY: fall/trauma. TECHNIQUE: 2D digital imaging was performed of the left tibia/fibula, ankle and foot. Eight images were obtained. AP, oblique and lateral views were obtained. COMPARISON: CR LEFT ANKLE COMPLETE from 04/12/2015 CR XR FOOT LT COMPLETE from 11/26/2018 CR,XR XR TIB/FIB LT from 11/23/2022 CR,XR XR ANKLE LT COMPLETE from 11/23/2022 FINDINGS: BONES: There is an old healed distal fibular fracture. No bony destructive lesion is seen. There are hammertoe deformities of the 2nd through 5th toes. JOINTS: No dislocation present. There are degenerative changes seen in the foot. SOFT TISSUE: There is soft tissue swelling of the dorsum of the foot and ankle. There is also soft t issue swelling over the anterior lower leg. No radiopaque foreign bodies are seen. IMPRESSION: 1. No acute fracture or dislocation is seen in the leg, ankle or foot. 2. Soft tissue swelling over the lower extremity as described above. DATA REPOSITORY: RADIATION DOSE DELIVERED:
--- NOTE | 2022-11-23 10:15 | DI.RAD_ITS ---
Exam(s) XR WRIST LT COMP NAVICULAR XR HAND LT COMPLETE EXAM: XR HAND LT COMPLETE and XR wrist LT complete CLINICAL HISTORY: trauma. TECHNIQUE: 2D digital imaging was performed of the left wrist and hand. Seven views were obtained. AP, lateral and oblique views were obtained. COMPARISON: CR,XR XR WRIST LT COMP NAVICULAR from 11/23/2022 FINDINGS: BONES: There is an acute nondisplaced fracture involving the proximal metaphysis of the proximal phal anx of the little finger. There is a question of involvement of the articular surface. There is als o a an impacted fracture of the distal metaphysis of the left radius. No bony destructive lesion is seen. JOINTS: No dislocation present. There are degenerative changes seen in the hand. SOFT TISSUE: Normal. IMPRESSION: 1. Impacted fracture involving the distal radial metaphysis. 2. Acute nondisplaced fracture involving the proximal metaphysis of the proximal phalanx of the littl e finger with question of involvement into the 5th MCP joint. DATA REPOSITORY: RADIATION DOSE DELIVERED:
--- NOTE | 2022-11-23 10:15 | DI.CT_ITS ---
Exam(s) CT HEAD CERVICAL SPINE WO EXAM: CT HEAD CERVICAL SPINE WO CLINICAL HISTORY: fall trauma. TECHNIQUE: Imaging Protocol: Axial computed tomography images with coronal and sagittal reformatted images were created and reviewed COMPARISON: CT HEAD FACIALS WO from 03/25/[address] NECK W from 11/08/2020 FINDINGS: CT Head: Ventricles and Extra axial spaces: Normal in size and morphology for the patient's age. Hemorrhage: None. Cerebral parenchyma: There is a large area of encephalomalacia involving the right frontal right temp oral and right parietal lobe. There is an old lacunar infarct involving the left basal ganglia. The re are areas of decreased attenuation in the white matter likely reflecting small vessel ischemic dis ease. Midline shift: None. Brainstem/Cerebellum: Normal. Calvarium: The patient has had prior craniectomies in craniotomies. Bilateral aneurysm clippings are noted. Visualized Paranasal sinuses/Mastoids: Clear. Soft Tissues: Unremarkable. CT Cervical Spine: Bones: No acute fracture or subluxation. Age-appropriate degenerative changes are seen in the cervica l spine. There is straightening of the normal cervical lordosis. This may be due to muscle spasm or patient positioning. Soft Tissues: Unremarkable. Lung Apices: Emphysematous changes are seen in the lung apices. IMPRESSION: 1. No acute intracranial process. 2. Stable postsurgical changes. 3. No acute fracture or subluxation in the cervical spine. RADIATION DOSE DELIVERED: 1,589.69mGy.cm Total DLP DATA REPOSITORY: All CT scans at this facility are submitted to the National Radiology Data Registry (NRDR) Dose Index Registry (DIR) with the [employer] (ACR). RADIATION OPTIMIZATION: All CT scans at this facility use at least one of these dose optimization te chniques: automated exposure control; mA and/or kV adjustment per patient size (includes targeted exa ms where dose is matched to clinical indication); or iterative reconstruction.
--- NOTE | 2022-11-23 10:21 | W.ED.GENAD ---
Discharge Plan Disposition Patient Disposition: Home Discharge Details Clinical Impression: Fracture of distal end of fibula, Hematoma of left lower leg, Buckle fracture of distal end of left radius, Left ankle sprain, Contusion of multiple sites Primary Care Provider: Unknown,Unknown ED Provider: Robbie Castanon Home Meds and New Rx's Prescriptions: Continued carbamazepine [Epitol] 200 mg tablet 400 mg PO HS Qty: 180 3RF sumatriptan succinate 100 mg tablet 100 mg PO DAILY PRN (Reason: migraine headache) Qty: 9 5RF Rx Instructions: No more than 2 tabs in a single 24 hour period. gabapentin 600 mg tablet See Rx Instructions PO DAILY Qty: 360 3RF Rx Instructions: 1 am, 1 noon, 2 hs PO daily; naproxen 375 mg tablet 375 mg PO BID PRN (Reason: pain) Qty: 120 0RF timolol 0.5 % drops 1 drp ophthalmic (eye) BID Thera-Tabs Tablet 1 tab PO DAILY albuterol sulfate [Ventolin HFA] 90 mcg/actuation HFA aerosol inhaler 2 puff IH Q6H PRN Discontinued clonazepam 0.5 mg tablet 0.5 mg PO QHS Qty: 30 3RF Patient Comments: 05/08/21-er--ran out of 2 months ago Rx Instructions: administer 30 minutes before bedtime Discharge Instructions Instructions: Ankle Sprain (ED), Arm Fracture in Adults (ED), Contusion in Adults (ED), Hematoma (ED) Additional Instructions: You will need to continue to use the walking boot and wrist brace until cleared by orthopedics. Please only perform light weightbearing activities as needed for stability. You also need to use a walker to help with stability. If you have any new or significant worsening of symptoms please return to the emergency department for reassessment otherwise you will need to follow-up with orthopedist. You may use [id number] pain medication as needed for discomfort. You may take the splinting off as needed for rest. Referrals: [facility] [Provider Group] Medical Decision Making Patient presenting to the emergency department for chief complaint of fall. Patient reports 4 days ago she was coming down the stairs and accidentally slipped landing on her left side. She reports injuring her left wrist and lower leg. Today when a friend went on to to check on her noted the significant hematoma and bruising and recommended patient be evaluated. Patient denies any loss of consciousness head injury. Patient does have history of cerebral aneurysm with CVA and craniotomy, left-sided persistent paresthesias, migraine headaches. Physical exam shows overall stable appearing patient in no severe signs of acute distress, has significant swelling ecchymosis and tenderness to palpation of left wrist with some range of motion intact but painful range of motion. Mostly tender over the distal radius. Left lower extremity is more significant with a significant hematoma to the anterior tibia, soft calf and no signs of compartment syndrome, patient does have distal fibula tenderness and foot tenderness with again severe ecchymosis noted. Patient does state difficulty with weightbearing on left lower extremity. We will perform radiological imaging. Pending results patient denies any need for pain medication. Review of radiological imaging shows a reported old spiral fracture of the distal fibula but no acute fractures to the left lower extremity, left upper extremity imaging does show a slight proximal phalanx fracture and a subtle buckle fracture of the distal radius. Given that patient lives alone and already has left-sided deficits I am concerned about standard splinting and patient's ability to care for herself. Due to this patient was placed in a thumb spica to stabilize the left wrist pending follow-up with orthopedics. Also for left ankle sprain and significant hematoma we did place patient in a walking boot and recommended use of a walker. Patient does report that she has no knowledge of previous spiral fracture of her fibula. Given that she has been put in a tall walking boot and just light weightbearing only as needed for stability recommended do not feel that patient needs to be splinted but will still refer patient to orthopedics for follow-up of wrist and lower leg including hematoma. Patient did state significant more stability with walking boot and walker along with wrist splint. After discussion of diagnosis and plan of care patient has no further needs, questions, or concerns and states clear understanding to return to the emergency department for any worsening symptoms. This documentation was generated using [employer] system, please disregard any oddities of phrase or misspellings. Imaging Data Radiologic Study: Imaging: CT Scan Radiologist's impression: Exam(s) PROCEDURE INFORMATION: Exam: CT Head Without Contrast Exam date and time: 11/23/2022 10:37 AM Age: 62 years old Clinical indication: Patient HX: Fall, trauma. PT has HX of anerysm TECHNIQUE: Imaging protocol: Computed tomography of the head without contrast. Radiation optimization: All CT scans at this facility use at least one of these dose optimization techniques: automated exposure control; mA and/or kV adjustment per patient size (includes targeted exams where dose is matched to clinical indication); or iterative reconstruction. COMPARISON: CT CTA HEAD W/ AND/OR WO CONT 11/25/2019 1:56 PM FINDINGS: Tubes, catheters and devices: Status post bilateral temporal craniectomies. Surgical clips in both temporal regions consistent with clipping of aneurysms.. Brain: Well delineated low-attenuation in the right frontal and temporal lobes consistent with prior infarction.. Prior lacunar infarctions in the left basal ganglia . No acute intracranial hemorrhage.. There is moderate diffuse heterogeneity of the white matter attenuation, consistent with chronic white matter ischemic changes. Moderate cerebral atrophy Cerebral ventricles: No ventriculomegaly. Paranasal sinuses: Visualized sinuses are unremarkable. No fluid levels. Mastoid air cells: Visualized mastoid air cells are well aerated. Bones/joints: Linear hyperdensities in the left frontal and parietal region are thought to represent artifact from metallic densities in the left calvarium. Series 3, image 27 33 Soft tissues: Unremarkable. IMPRESSION: 1. Status post bilateral temporal craniectomies. Surgical clips in both temporal regions consistent with clipping of aneurysms.. 2. Well delineated low-attenuation in the right frontal and temporal lobes consistent with prior infarction.. 3. Prior lacunar infarctions in the left basal ganglia . 4. No acute intracranial hemorrhage.. PROCEDURE INFORMATION: Exam: CT Cervical Spine Without Contrast Exam date and time: 11/23/2022 10:37 AM Age: 62 years old Clinical indication: Patient HX: Fall, trauma. PT has HX of anerysm TECHNIQUE: Imaging protocol: Computed tomography of the cervical spine without contrast. Radiation optimization: All CT scans at this facility use at least one of these dose optimization techniques: automated exposure control; mA and/or kV adjustment per patient size (includes targeted exams where dose is matched to clinical indication); or iterative reconstruction. COMPARISON: CT NECK W 11/08/2020 3:07 PM FINDINGS: Bones/joints: No acute fracture of the cervical spine. No subluxation or dislocation of the cervical spine. Intervertebral disc space narrowing C4 through C7 may represent degenerative disc disease.. Anterior osteophyte formation C4 through C7. Posterior osteophyte formation C4 through C7. Degenerative changes in the facets at multiple levels. Degenerative changes at C1/C2 Lungs: Emphysematous changes in the apices Thyroid: The thyroid is unremarkable Soft tissues: Unremarkable. IMPRESSION: 1. No acute fracture of the cervical spine. 2. No subluxation or dislocation of the cervical spine. 3. Intervertebral disc space narrowing C4 through C7 may represent degenerative disc disease.. Radiologic Study #2: Imaging: X-Ray Radiologist's impression: Exam(s) PROCEDURE INFORMATION: Exam: XR Left Wrist Exam date and time: 11/23/2022 10:51 AM Age: 62 years old Clinical indication: Other: Trauma TECHNIQUE: Imaging protocol: Radiologic exam of the left wrist. Views: 3 or more views. COMPARISON: CT UPPER EXTREMITY LT WO 06/13/2020 1:42 PM FINDINGS: Bones/joints: Minimally displaced fracture proximal phalanx little finger. Contour abnormality in the distal radius may represent acute impaction fracture. There is impaction noted on the lateral.. Soft tissues: Soft tissue swelling of the wrist IMPRESSION: 1. Minimally displaced fracture proximal phalanx little finger. 2. Contour abnormality in the distal radius may represent acute impaction fracture. There is impaction noted on the lateral.. Exam(s) Addendum created by Otis Childs MD on 11/23/2022 11:04:54 AM EDT: Addendum:? There is a impacted distal radius fracture noted on the x-ray of the wrist Initial report created on 11/23/2022 11:02:56 AM EDT: PROCEDURE INFORMATION: Exam: XR Left Hand Exam date and time: 11/23/2022 10:48 AM Age: 62 years old Clinical indication: Other: Trauma TECHNIQUE: Imaging protocol: Radiologic exam of the left hand. Views: 3 or more views. COMPARISON: CT UPPER EXTREMITY LT WO 06/13/2020 1:42 PM FINDINGS: Bones/joints: Lucency in the proximal aspect of the proximal phalanx of the little finger. Contour abnormality in the proximal aspect of the proximal phalanx of the little finger. Findings consistent with acute fractures.. Osteopenia. Degenerative changes in the radiocarpal joint and PIP joints and DIP joints of the fingers Soft tissues: Soft tissue swelling adjacent to the 5th metacarpal and 5th finger IMPRESSION: Lucency in the proximal aspect of the proximal phalanx of the little finger. Contour abnormality in the proximal aspect of the proximal phalanx of the little finger. Findings consistent with acute fractures.. Exam(s) PROCEDURE INFORMATION: Exam: XR Left Foot Exam date and time: 11/23/2022 10:56 AM Age: 62 years old Clinical indication: Other: Trauma TECHNIQUE: Imaging protocol: Radiologic exam of the left foot. Views: 3 or more views. COMPARISON: CR XR FOOT LT COMPLETE 11/26/2018 10:46 AM FINDINGS: Bones/joints: There is no evidence of acute fracture in any of the visualized osseous structures.. There is no evidence of malalignment or dislocation of any visualized joint. Degenerative changes in the IP joint of the great toe. Degenerative changes in the tarsal bones Soft tissues: Soft tissue swelling over the dorsum of the foot Other findings: Hammertoes 2 through 5 IMPRESSION: 1. There is no evidence of acute fracture in any of the visualized osseous structures.. 2. There is no evidence of malalignment or dislocation of any visualized joint. Exam(s) PROCEDURE INFORMATION: Exam: XR Left Ankle Exam date and time: 11/23/2022 11:00 AM Age: 62 years old Clinical indication: Other: Trauma TECHNIQUE: Imaging protocol: Radiologic exam of the left ankle. Views: 3 or more views. COMPARISON: CR XR FOOT LT COMPLETE 11/23/2022 10:56 AM FINDINGS: Bones/joints: There is a healing spiral oblique fracture of the distal fibula of unknown age.. Degenerative changes in the tibiotalar joint and in the medial and lateral malleolus Soft tissues: Soft tissue swelling of the ankle especially adjacent to the lateral malleolus IMPRESSION: There is a healing spiral oblique fracture of the distal fibula of unknown age.. Exam(s) PROCEDURE INFORMATION: Exam: XR Left Tibia and Fibula Exam date and time: 11/23/2022 11:04 AM Age: 62 years old Clinical indication: Other: Trauma TECHNIQUE: Imaging protocol: Radiologic exam of the left tibia and fibula. Views: 2 views. COMPARISON: CR XR ANKLE LT COMPLETE 11/23/2022 11:00 AM FINDINGS: Bones/joints: Healed spiral oblique fracture of the distal fibular shaft. There is no evidence of acute fracture in any of the visualized osseous structures.. There is no evidence of malalignment or dislocation of any visualized joint. Soft tissues: Normal. IMPRESSION: 1. Healed spiral oblique fracture of the distal fibular shaft. 2. There is no evidence of acute fracture in any of the visualized osseous structures.. 3. There is no evidence of malalignment or dislocation of any visualized joint. Lab Data Lab results reviewed: Yes I reviewed the patient's lab results. HPI General Mode of arrival: ambulatory. Date/Time Provider Initiated Documentation: 11/23/22 10:01. Limitations to Documentation: no limitations. Information obtained by: patient and RN notes reviewed. History of Present Illness 62 year old F presents to the emergency department with the chief complaint of fal with left sided injury, described as moderate, Quality is described as sharp, and is localized to the left, upper extremity and lower extremity. Patient reports no radiation. Patient started experiencing this day(s) (4) and it has been constant. No relieving factors improve symptom(s), No exacerbating factors reported . Patient notes no other symptoms.. Patient did receive the following treatments prior to arrival, none Related Data Home Medications Medication Instructions Recorded Confirmed albuterol sulfate 90 mcg/actuation 2 puff inhalation Q6H PRN 09/21/19 05/08/21 aerosol inhaler (Ventolin HFA) therapeutic multivitamin 1 tab PO DAILY 09/21/19 05/08/21 (Thera-Tabs tablet) carbamazepine 200 mg tablet 400 mg PO HS #180 tabs 01/18/20 05/08/21 (Epitol) gabapentin 600 mg tablet See Rx Instructions PO DAILY #360 01/18/20 05/08/21 tabs naproxen 375 mg tablet 375 mg PO BID PRN pain #120 tabs 01/18/20 05/08/21 sumatriptan succinate 100 mg tablet 100 mg PO DAILY PRN migraine 01/18/20 05/08/21 headache #9 tabs timolol 0.5 % eye drops 1 drp ophthalmic (eye) BID 05/22/20 05/08/21 Previous Rx's Medication Instructions Recorded carbamazepine 200 mg tablet 400 mg PO HS #180 tabs 01/18/20 (Epitol) gabapentin 600 mg tablet See Rx Instructions PO DAILY #360 01/18/20 tabs naproxen 375 mg tablet 375 mg PO BID PRN pain #120 tabs 01/18/20 sumatriptan succinate 100 mg tablet 100 mg PO DAILY PRN migraine 01/18/20 headache #9 tabs Allergies Allergy/AdvReac Type Severity Reaction Status Date / Time ketorolac [From Toradol] Allergy Verified 05/08/21 11:30 General Stated Complaint: Fall/Non TraumaCriteria HENRY: 3 Review of Systems Constitutional Constitutional: Denies fever(s) and Denies headache(s) ENT Ears, Nose, Mouth, and Throat: Denies headache(s) Cardiovascular Cardiovascular: Denies chest pain, Denies syncope and Denies dyspnea Respiratory Respiratory: Denies dyspnea Gastrointestinal Gastrointestinal: Denies abdominal pain Musculoskeletal Musculoskeletal: Reports as per HPI, Reports arthralgias, Reports joint swelling, Reports limited range of motion, Denies numbness, Reports stiffness and Denies tingling Integumentary/Breasts Skin/Breast: Reports unusual bruising Neurologic Neurologic: Denies syncope, Denies headache(s), Denies memory loss, Denies numbness and Denies tingling Psychiatric Psychiatric: Denies memory loss PFSH All Active Problems (Updated 11/23/22 @ 13:04 by Robbie Castanon NP) Hematoma of left lower leg (Acute) Buckle fracture of distal end of left radius (Acute) Left ankle sprain (Acute) Contusion of multiple sites (Acute) Fracture of distal end of fibula (Acute) Brachial plexus injury, left (Acute) Encephalomalacia (Acute) Closed fracture of left proximal humerus (Acute 05/16/20) Cerebral aneurysm (Acute) 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) (Acute) Migraine headache without aura (Acute) Insomnia (Acute) Medical History Abnormal auditory perception Anemia Anxiety with depression Bilateral artificial lens implant Bunion Chronic lower back pain COPD (chronic obstructive pulmonary disease) Fibrocystic disease of both breasts Hammer toe of left foot Hemiparesis, left Myocardial infarction Onychomycosis Post operative CHF Primary open angle glaucoma Tobacco use Surgical History ANEURYSM CLIPPING Craniotomy Ligation of fallopian tube Family History Father Lung cancer Frequent headaches Mother Brain bleed Sister Brain bleed Social History Smoking/Tobacco Use Status: Current-Occasional Tobacco Type: cigarettes Smoking risk assessment performed?: Yes Alcohol Intake: current Alcohol Intake frequency: 3 or more drinks per day Alcohol type: beer Drug use: Never Household members: friend(s) Number of Children: 0 current occupation: Disabled. 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 Pets and animals: Yes Pets and animals: cat(s), dog(s), bird(s), fish and snake(s) Current gender identity: female What is your relationship status?: Panel score (0-1 are the most socially isolated patients): 0 What type of physical activity do you participate in: none Seatbelt use: always Do you feel safe at home: Yes Do you feel safe in your relationship?: Yes Exam Const General: cooperative, no acute distress and not ill appearing Orientation: alert, awake and oriented x3 HENMT Mouth: moist mucous membranes Resp Effort & Inspection: normal respiratory effort, able to speak in complete sentences and no respiratory distress Cardio Rate: regular rate Rhythm: regular rhythm Pulses: normal peripheral pulses Skin General skin exam: no rashes or lesions noted Neuro General: patient alert, patient awake, patient oriented x3, moves all extremities and no focal motor deficits Sensory Exam: no sensory deficits noted Extrem Left upper extremity: wrist Details: tenderness, swelling, abnormal ROM Details: pain with active ROM and pain with passive ROM, ecchymosis, normal vascular exam and radial pulse present and hand Details: normal capillary refill, tenderness, abnormal ROM of finger Details: pain with active ROM and pain with passive ROM and ecchymosis Left lower extremity: lower leg Details: tenderness, localized swelling and ecchymosis mid lower leg anterolateral , ankle Details: tenderness, swelling Details: diffusely, abnormal ROM Details: with range as follows (Significantly reduced secondary to pain) and ecchymosis and foot Details: normal capillary refill, tenderness, edema and ecchymosis Course Vital Signs Vital signs: Vital Signs Temperature 37.2 C 11/23/22 10:04 Pulse 75 11/23/22 10:04 Respiratory Rate 22 11/23/22 10:04 Blood Pressure 147/97 H 11/23/22 10:04 Pulse Oximetry 98 11/23/22 10:04 Temperature 37.2 C 11/23/22 10:04 Temperature Source Oral 11/23/22 10:04 Pulse 75 11/23/22 10:08 Respiratory Rate 22 11/23/22 10:04 Respiratory Effort Normal, Non-Labored 11/23/22 10:09 Blood Pressure 147/97 H 11/23/22 10:08 Blood Pressure Mean 111 11/23/22 10:08 Blood Pressure Position Sitting 11/23/22 10:04 Pulse Oximetry 94 11/23/22 10:10 Oxygen Delivery Method Room Air 11/23/22 10:04 Oxygen Flow Rate 0 11/23/22 10:04 PAWSS Have you Been Recently Intoxicated or Drunk Within the Last 30 days?: Yes Have you Ever Experienced Previous Episodes of Alcohol Withdrawal?: No Have you ever Experienced Withdrawal Seizures?: No Have you ever Experienced Delirium Tremens(DT)s?: No Have you ever undergone Alcohol Rehabilitation Treatment (i.e, inpt ot outpatient treatment programs)?: No Have you ever Experienced Blackouts?: No Have you ever Combined Alcohol with other Downers within the last 90 days?: No Have you ever Combined Alcohol with any other Substance of Abuse during the last 90 days?: No Positive Blood Alcohol level on Presentation? [PCS.BAL]: Yes Evidence of Increased Autonomic Activity (i.e. HR>120, tremor, sweating, agitation, nausea)?: No Result: 2
--- NOTE | 2022-11-23 11:01 | DI.VRAD_ITS ---
PROCEDURE INFORMATION: Exam: CT Head Without Contrast Exam date and time: 11/23/2022 10:37 AM Age: 62 years old Clinical indication: Patient HX: Fall, trauma. PT has HX of anerysm TECHNIQUE: Imaging protocol: Computed tomography of the head without contrast. Radiation optimization: All CT scans at this facility use at least one of these dose optimization techniques: automated exposure control; mA and/or kV adjustment per patient size (includes targeted exams where dose is matched to clinical indication); or iterative reconstruction. COMPARISON: CT CTA HEAD W/ AND/OR WO CONT 11/25/2019 1:56 PM FINDINGS: Tubes, catheters and devices: Status post bilateral temporal craniectomies. Surgical clips in both temporal regions consistent with clipping of aneurysms.. Brain: Well delineated low-attenuation in the right frontal and temporal lobes consistent with prior infarction.. Prior lacunar infarctions in the left basal ganglia . No acute intracranial hemorrhage.. There is moderate diffuse heterogeneity of the white matter attenuation, consistent with chronic white matter ischemic changes. Moderate cerebral atrophy Cerebral ventricles: No ventriculomegaly. Paranasal sinuses: Visualized sinuses are unremarkable. No fluid levels. Mastoid air cells: Visualized mastoid air cells are well aerated. Bones/joints: Linear hyperdensities in the left frontal and parietal region are thought to represent artifact from metallic densities in the left calvarium. Series 3, image 27 33 Soft tissues: Unremarkable. IMPRESSION: 1. Status post bilateral temporal craniectomies. Surgical clips in both temporal regions consistent with clipping of aneurysms.. 2. Well delineated low-attenuation in the right frontal and temporal lobes consistent with prior infarction.. 3. Prior lacunar infarctions in the left basal ganglia . 4. No acute intracranial hemorrhage.. PROCEDURE INFORMATION: Exam: CT Cervical Spine Without Contrast Exam date and time: 11/23/2022 10:37 AM Age: 62 years old Clinical indication: Patient HX: Fall, trauma. PT has HX of anerysm TECHNIQUE: Imaging protocol: Computed tomography of the cervical spine without contrast. Radiation optimization: All CT scans at this facility use at least one of these dose optimization techniques: automated exposure control; mA and/or kV adjustment per patient size (includes targeted exams where dose is matched to clinical indication); or iterative reconstruction. COMPARISON: CT NECK W 11/08/2020 3:07 PM FINDINGS: Bones/joints: No acute fracture of the cervical spine. No subluxation or dislocation of the cervical spine. Intervertebral disc space narrowing C4 through C7 may represent degenerative disc disease.. Anterior osteophyte formation C4 through C7. Posterior osteophyte formation C4 through C7. Degenerative changes in the facets at multiple levels. Degenerative changes at C1/C2 Lungs: Emphysematous changes in the apices Thyroid: The thyroid is unremarkable Soft tissues: Unremarkable. IMPRESSION: 1. No acute fracture of the cervical spine. 2. No subluxation or dislocation of the cervical spine. 3. Intervertebral disc space narrowing C4 through C7 may represent degenerative disc disease.. Dictated and Authenticated by: Otis Childs MD. Ordering:ALVARO Avalos MD
--- NOTE | 2022-11-23 11:03 | DI.VRAD_ITS ---
Addendum created by Otis Childs MD on 11/23/2022 11:04:54 AM EDT: Addendum: There is a impacted distal radius fracture noted on the x-ray of the wrist Initial report created on 11/23/2022 11:02:56 AM EDT: PROCEDURE INFORMATION: Exam: XR Left Hand Exam date and time: 11/23/2022 10:48 AM Age: 62 years old Clinical indication: Other: Trauma TECHNIQUE: Imaging protocol: Radiologic exam of the left hand. Views: 3 or more views. COMPARISON: CT UPPER EXTREMITY LT WO 06/13/2020 1:42 PM FINDINGS: Bones/joints: Lucency in the proximal aspect of the proximal phalanx of the little finger. Contour abnormality in the proximal aspect of the proximal phalanx of the little finger. Findings consistent with acute fractures.. Osteopenia. Degenerative changes in the radiocarpal joint and PIP joints and DIP joints of the fingers Soft tissues: Soft tissue swelling adjacent to the 5th metacarpal and 5th finger IMPRESSION: Lucency in the proximal aspect of the proximal phalanx of the little finger. Contour abnormality in the proximal aspect of the proximal phalanx of the little finger. Findings consistent with acute fractures.. Dictated and Authenticated by: Otis Childs MD. Ordering:ALVARO Avalos MD
--- NOTE | 2022-11-23 11:04 | DI.VRAD_ITS ---
PROCEDURE INFORMATION: Exam: XR Left Wrist Exam date and time: 11/23/2022 10:51 AM Age: 62 years old Clinical indication: Other: Trauma TECHNIQUE: Imaging protocol: Radiologic exam of the left wrist. Views: 3 or more views. COMPARISON: CT UPPER EXTREMITY LT WO 06/13/2020 1:42 PM FINDINGS: Bones/joints: Minimally displaced fracture proximal phalanx little finger. Contour abnormality in the distal radius may represent acute impaction fracture. There is impaction noted on the lateral.. Soft tissues: Soft tissue swelling of the wrist IMPRESSION: 1. Minimally displaced fracture proximal phalanx little finger. 2. Contour abnormality in the distal radius may represent acute impaction fracture. There is impaction noted on the lateral.. Dictated and Authenticated by: Otis Childs MD. Ordering:ALVARO Avalos MD
--- NOTE | 2022-11-23 11:06 | DI.VRAD_ITS ---
PROCEDURE INFORMATION: Exam: XR Left Foot Exam date and time: 11/23/2022 10:56 AM Age: 62 years old Clinical indication: Other: Trauma TECHNIQUE: Imaging protocol: Radiologic exam of the left foot. Views: 3 or more views. COMPARISON: CR XR FOOT LT COMPLETE 11/26/2018 10:46 AM FINDINGS: Bones/joints: There is no evidence of acute fracture in any of the visualized osseous structures.. There is no evidence of malalignment or dislocation of any visualized joint. Degenerative changes in the IP joint of the great toe. Degenerative changes in the tarsal bones Soft tissues: Soft tissue swelling over the dorsum of the foot Other findings: Hammertoes 2 through 5 IMPRESSION: 1. There is no evidence of acute fracture in any of the visualized osseous structures.. 2. There is no evidence of malalignment or dislocation of any visualized joint. Dictated and Authenticated by: Otis Childs MD. Ordering:ALVARO Avalos MD
--- NOTE | 2022-11-23 11:07 | DI.VRAD_ITS ---
PROCEDURE INFORMATION: Exam: XR Left Ankle Exam date and time: 11/23/2022 11:00 AM Age: 62 years old Clinical indication: Other: Trauma TECHNIQUE: Imaging protocol: Radiologic exam of the left ankle. Views: 3 or more views. COMPARISON: CR XR FOOT LT COMPLETE 11/23/2022 10:56 AM FINDINGS: Bones/joints: There is a healing spiral oblique fracture of the distal fibula of unknown age.. Degenerative changes in the tibiotalar joint and in the medial and lateral malleolus Soft tissues: Soft tissue swelling of the ankle especially adjacent to the lateral malleolus IMPRESSION: There is a healing spiral oblique fracture of the distal fibula of unknown age.. Dictated and Authenticated by: Otis Childs MD. Ordering:ALVARO Avalos MD
--- NOTE | 2022-11-23 11:08 | DI.VRAD_ITS ---
PROCEDURE INFORMATION: Exam: XR Left Tibia and Fibula Exam date and time: 11/23/2022 11:04 AM Age: 62 years old Clinical indication: Other: Trauma TECHNIQUE: Imaging protocol: Radiologic exam of the left tibia and fibula. Views: 2 views. COMPARISON: CR XR ANKLE LT COMPLETE 11/23/2022 11:00 AM FINDINGS: Bones/joints: Healed spiral oblique fracture of the distal fibular shaft. There is no evidence of acute fracture in any of the visualized osseous structures.. There is no evidence of malalignment or dislocation of any visualized joint. Soft tissues: Normal. IMPRESSION: 1. Healed spiral oblique fracture of the distal fibular shaft. 2. There is no evidence of acute fracture in any of the visualized osseous structures.. 3. There is no evidence of malalignment or dislocation of any visualized joint. Dictated and Authenticated by: Otis Childs MD. Ordering:ALVARO Avalos MD
[2022-11-23 12:42] VITALS: BP 122/84; PULSE 68; RESP 20; O2SAT 96
== END 2022-11-23 13:04 | disposition home or self-care (01) ==
PROVIDERS: Emergency Provider Nurse Practitioner Family
DX: M79.602 Pain in left arm (principal); S80.12XA Contusion of left lower leg, initial encounter; S52.522A Torus fracture of lower end of left radius, initial encounter for closed fracture; S93.402A Sprain of unspecified ligament of left ankle, initial encounter; S82.832A Other fracture of upper and lower end of left fibula, initial encounter for closed fracture; W10.9XXA Fall (on) (from) unspecified stairs and steps, initial encounter
CPT/HCPCS: 99284; 70450; 72125; 73110; 73130; 73590; 73610; 73630